=== PATIENT | female | born 1965 | race Two or more races ===

== ENCOUNTER 2018-12-20 13:41 | Emergency (ER) | payer BC, OTHER ==
[~2018-12-20] VITALS: Ht 172.7 cm; Wt 90.4 kg
[~2018-12-20 13:41] MED LIST: NO HOME MEDS; ONDA8TAB9 PO; PHEN-786 PO
[2018-12-20] MEDS ORDERED: iohexol 350MG/ML 100ml bottle IV ONE (14:34)
[2018-12-20 14:39] LABS: BASOPHILS % (AUTO) 0.3 % (0-1); EOSINOPHILS % (AUTO) 0.2 % (0-6); HEMATOCRIT 39.7 % (35.0-45.0); HEMOGLOBIN 13.2 g/dl (12.0-16.0); LYMPHOCYTES # (AUTO) 1.3 X10'3 (1.1-4.8); LYMPHOCYTES % (AUTO) 21.9 % (21-51); MEAN CORPUSCULAR HEMOGLOBIN 30.7 PG (27.0-31.0); MEAN CORPUSCULAR HGB CONC 33.3 g/dL (33.0-36.5); MEAN PLATELET VOLUME 9.8 FL (7.4-10.4); MONOCYTES # (AUTO) 0.6 X10'3 (0-0.9); MONOCYTES % (AUTO) 9.1 % (2-12); NEUTROPHILS # (AUTO) 4.2 X10'3 (1.8-7.7); NEUTROPHILS % (AUTO) 68.5 % (42-75); PLATELET COUNT 239 X10'3 (140-440); RED BLOOD COUNT 4.31 X10'6 (4.20-5.60); RED CELL DISTRIBUTION WIDTH 13.1 % (11.5-14.5); WHITE BLOOD COUNT 6.1 X10'3 (4.5-11.0)
[2018-12-20 14:56] LABS: D-DIMER 0.31 MG/L FEU (0-0.50)
[2018-12-20 15:08] VITALS: BP 130/82
--- NOTE | 2018-12-20 15:32 | NUR ---
CALLED LAB TO HAVE URINE PROCESSED IT WAS SENT DOWN 23 MIN AGO AND STILL NOT PROCESSING.
[2018-12-20] MEDS ORDERED: LORA-269 PO (15:43)
[2018-12-20 15:48] LABS: CLARITY,URINE CLEAR (Clear); COLOR,URINE STRAW (Yellow); GLUCOSE, URINE NEGATIVE (Neg); KETONES,URINE NEGATIVE (Neg); LEUKOCYTE ESTERASE ,URINE NEGATIVE (Neg); NITRITES, URINE NEGATIVE (Neg); OCCULT BLOOD,URINE NEGATIVE (Neg); PH,URINE 5.5 (4.8-8.0); PROTEIN,URINE NEGATIVE (Neg); UROBILINOGEN,URINE 0.2 E.U/dL (0.2-1.0)
[2018-12-20 15:50] LABS: UA COLLECTION TYPE CLN CATCH MIDSTREAM
== END 2018-12-20 16:01 | disposition home or self-care (01) ==
LOC: ER 13:44
DX: F41.0 Panic disorder [episodic paroxysmal anxiety] (principal); R00.2 Palpitations; Z79.899 Other long term (current) drug therapy; Z90.710 Acquired absence of both cervix and uterus
CPT/HCPCS: 36415; 71275; 74174; 81003; 83880; 84484; 85025; 85379; 93005; 99284; Q9967

== ENCOUNTER 2023-07-09 11:12 | Emergency (ER) | payer MEDICAID ==
[~2023-07-09] VITALS: Ht 177.8 cm; Wt 93.8 kg
[~2023-07-09 11:12] MED LIST changes: +LORA-269 PO
[2023-07-09 11:15] VITALS: BP 143/74; PULSE 87; RESP 18; TEMP 97.8; O2SAT 98
[2023-07-09 14:46] LABS: BASOPHILS % (AUTO) 0.5 % (0-1); EOSINOPHILS % (AUTO) 0.2 % (0-6); HEMATOCRIT 41.4 % (35.0-45.0); HEMOGLOBIN 13.9 g/dl (12.0-16.0); LYMPHOCYTES # (AUTO) 1.6 X10'3 (1.1-4.8); LYMPHOCYTES % (AUTO) 26.6 % (21-51); MEAN CORPUSCULAR HEMOGLOBIN 31.3 PG (27.0-31.0); MEAN CORPUSCULAR HGB CONC 33.5 g/dL (33.0-36.5); MEAN CORPUSCULAR VOLUME 93.3 FL (78-98); MEAN PLATELET VOLUME 9.4 FL (7.4-10.4); MONOCYTES # (AUTO) 0.7 X10'3 (0-0.9); MONOCYTES % (AUTO) 11.2 % (2-12); NEUTROPHILS # (AUTO) 3.6 X10'3 (1.8-7.7); NEUTROPHILS % (AUTO) 61.5 % (42-75); PLATELET COUNT 256 X10'3 (140-440); RED BLOOD COUNT 4.43 X10'6 (4.20-5.60); RED CELL DISTRIBUTION WIDTH 13.2 % (11.5-14.5); WHITE BLOOD COUNT 5.9 X10'3 (4.5-11.0)
[2023-07-09] MEDS ORDERED: ibuprofen tablet 400 MG TABLET PO ONE (14:50)
[2023-07-09 14:58] LABS: ALANINE AMINOTRANSFERASE 29 U/L (12-78); ALBUMIN 3.8 G/DL (3.4-5.0); ALKALINE PHOSPHATASE 100 IU/L (46-116); ANION GAP 8 (8-16); ASPARTATE AMINO TRANSFERASE 19 U/L (10-37); BILIRUBIN,TOTAL 0.3 MG/DL (0.1-1.0); BLOOD UREA NITROGEN 10 MG/DL (7-18); BUN/CREATININE RATIO 15.6 (10.0-20.0); CALCIUM 9.2 MG/DL (8.5-10.1); CHLORIDE 104 MMOL/L (99-107); CREATININE 0.64 MG/DL (0.40-0.90); GLUCOSE 97 MG/DL (70-104); POTASSIUM 3.9 MMOL/L (3.5-5.1); SODIUM 140 MMOL/L (135-145); TOTAL CARBON DIOXIDE 28.2 MMOL/L (24-32); TOTAL PROTEIN 7.5 G/DL (6.4-8.2); eCRCL 104 ML/MIN; eGFR > 90 ML/MIN
[2023-07-09] MEDS ORDERED: CefTRIAXone 1000mg IM Kit (w/lidocaine diluent) IM ONE (15:20)
[2023-07-09] MEDS ORDERED: CLIN300C63 PO ×3 (15:34→16:06)
[2023-07-09] MEDS ORDERED: IBUP-1985 PO ×3 (15:34→16:06)
== END 2023-07-09 16:39 | disposition home or self-care (01) ==
LOC: ER 11:13
DX: I80.01 Phlebitis and thrombophlebitis of superficial vessels of right lower extremity (principal); Z87.440 Personal history of urinary (tract) infections; Z87.442 Personal history of urinary calculi; Z90.710 Acquired absence of both cervix and uterus; Z79.2 Long term (current) use of antibiotics; Z79.899 Other long term (current) drug therapy
CPT/HCPCS: 36415; 80053; 85025; 93971; 96372; 99285; J0696

== ENCOUNTER 2023-10-25 21:38 | Emergency (ER) | payer MEDICAID ==
[~2023-10-25] VITALS: Ht 177.8 cm; Wt 93.0 kg
[~2023-10-25 21:38] MED LIST changes: +CLIN300C63 PO; +IBUP-1985 PO
[2023-10-25 21:50] VITALS: BP 154/91; PULSE 74; TEMP 98.8; O2SAT 97
[2023-10-25 22:07] LABS: BILIRUBIN,URINE NEGATIVE (Neg); CLARITY,URINE CLOUDY (Clear); COLOR,URINE STRAW (Yellow); GLUCOSE, URINE NEGATIVE (Neg); KETONES,URINE NEGATIVE (Neg); LEUKOCYTE ESTERASE ,URINE MODERATE (Neg); NITRITES, URINE NEGATIVE (Neg); OCCULT BLOOD,URINE LARGE (Neg); PROTEIN,URINE 100 mg/dl (Neg); UROBILINOGEN,URINE 0.2 E.U/dL (0.2-1.0)
[2023-10-25 22:13] LABS: UA COLLECTION TYPE CLN CATCH MIDSTREAM
[2023-10-25 22:14] LABS: MUCUS STRANDS NONE SEEN /LPF (Neg); SQUAMOUS EPITHELIAL CELL,UR FEW /LPF (FEW); TRANSITIONAL EPI CELLS,URINE FEW /HPF
[2023-10-25 22:15] LABS: BACTERIA,URINE 1+ /HPF (Neg); WBC CLUMPS,URINE FEW /HPF (NEGATIVE); WBC,URINE 50-100 /HPF (0-4)
[2023-10-25] MEDS ORDERED: CefTRIAXone 250MG inj IM ONE (23:20)
[2023-10-25] MEDS ORDERED: NITR100C PO (23:31)
[2023-10-25] MEDS: ketorolac trometh inj. 60 MG/2 ML VIAL IM ONE (23:51)
[2023-10-25] MEDS: CefTRIAXone 1000mg IM Kit (w/lidocaine diluent) IM ONE (23:59)
[2023-10-26 00:02] VITALS: RESP 18
== END 2023-10-26 00:22 | disposition home or self-care (01) ==
LOC: ER 21:39
DX: N39.0 Urinary tract infection, site not specified (principal); Z87.442 Personal history of urinary calculi; Z79.899 Other long term (current) drug therapy
CPT/HCPCS: 81001; 87077; 87088; 87186; 96372; 99284; J0696; J1885

== ENCOUNTER 2025-01-31 10:04 | Outpatient (CLI) | payer MEDICAID ==
[~2025-01-31 10:04] MED LIST changes: +NITR100C PO
--- NOTE | 2025-01-31 11:32 | RADIOLOGY REPORT ---
INDICATION: RIGHT FACIAL NUMBNESS EXAM DATE: 01/31/2025 10:18 AM COMPARISON: None TECHNIQUE: CT of the sinuses without intravenous contrast. RADIATION DOSE: CTDIvol: 54 mGy, DLP: 701 mGy*cm FINDINGS: The frontal sinuses are clear. The ethmoid air cells are clear bilaterally. The right maxillary sin uses are clear . Mucous retention cyst or polyp in the left inferior maxillary sinus measures 1.2 cm. The sphenoid sinuses are clear. The ostiomeatal unit complexes appear patent bilaterally. The cri briform plate and lamina papyracea appear grossly intact. No abnormality of the orbits or globes is identified. The visualized brain is unremarkable. The surrounding soft tissues and osseous structur es are unremarkable. IMPRESSION: Mucous retention cyst or polyp in the left inferior maxillary sinus measures 1.2 cm.
== END 2025-01-31 23:59 | disposition home or self-care (01) ==
LOC: RAD 10:04
PROVIDERS: ATTEND Student in an Organized Health Care Education/Training Program
DX: R20.0 Anesthesia of skin (principal)
CPT/HCPCS: 70486

== ENCOUNTER 2025-02-25 12:41 | Outpatient (CLI) | payer MEDICAID ==
--- NOTE | 2025-02-25 15:38 | RADIOLOGY REPORT ---
EXAM: CT CT HEAD INDICATION: ANESTHESIA OF SKIN TECHNIQUE: CT of the head without intravenous contrast. Radiation Dose Information: CT Dose: CTDI volume is 25 mGy. Dose-length product is 250 mGy*cm The dose indicators for CT are the volume Computed Tomography (CT) Dose Index (CTDIvol) and the Dose Length Product (DLP), and are measured in units of mGy and mGy-cm, respectively. These indicators are not patient dose, but values generated from the CT scanner acquisition factors. The report includes radiation exposure data for exposures received during this examination. COMPARISON: None FINDINGS: There is no evidence of acute intracranial hemorrhage, extra-axial collection, mass effect, midline s hift, herniation or hydrocephalus. The ventricles, sulci and cisterns are age appropriate. The anderson-white differentiation is intact. Patchy periventricular and subcortical white matter hypoattenuation is nonspecific but may be related to small vessel ischemic disease. The visualized paranasal sinuses and mastoid air cells are clear. The surrounding soft tissues and osseous structures are unremarkable. IMPRESSION: No acute intracranial abnormality.
--- NOTE | 2025-02-25 15:41 | VASCULAR REPORT ---
Carotid Duplex Clinical History: Right facial paralysis Comparison: None Technique: Duplex Doppler evaluation of the extracranial carotid and vertebral arteries including color Doppler and spectral/pulsed waveform analysis was performed. Findings: RIGHT SIDE: The peak systolic velocities are 115 cm/s in the CCA, 80 cm/s in the ICA. The ICA/CCA ratio is 0.9. The external carotid artery is patent with peak systolic velocity of 144 cm/s proximally. The subclavian artery is patent with peak systolic velocity of 141 cm/s. There is appropriate antegrade flow in the right vertebral artery. LEFT SIDE: The peak systolic velocities are 113 cm/s in the CCA, 85 cm/s in the ICA. The ICA/CCA ratio is 1.2. The external carotid artery is patent with peak systolic velocity of 100 cm/s proximally. The subclavian artery is patent with peak systolic velocity of 123 cm/s. There is appropriate antegrade flow in the left vertebral artery. IMPRESSION: Less than 50% stenosis of bilateral carotid artery systems. Reference: Radiology 2003; [id number] Normal ICA PSV is <125 cm/sec and no plaque or intimal thickening is visible sonographically addition al criteria include ICA/CCA PSV ratio <2.0 and ICA EDV <40 cm/sec <50% ICA stenosis ICA PSV is <125 cm/sec and plaque or intimal thickening is visible sonographically additional criteria include ICA/CCA PSV ratio <2.0 and ICA EDV <40 cm/sec 50-69% ICA stenosis ICA PSV is 125-230 cm/sec and plaque is visible sonographically additional criter ia include ICA/CCA PSV ratio of 2.0-4.0 and ICA EDV of 40-100 cm/sec 70% ICA stenosis but less than near occlusion ICA PSV is >230 cm/sec and visible plaque and luminal narrowing are seen at anderson-scale and color Doppler ultrasound (the higher the Doppler parameters lie above the threshold of 230 cm/sec, the greater the likelihood of severe disease) additional criteria include ICA/CCA PSV ratio >4 and ICA EDV >100 cm/sec
== END 2025-02-25 23:59 | disposition home or self-care (01) ==
LOC: VAS 12:41
PROVIDERS: ATTEND Student in an Organized Health Care Education/Training Program
DX: R20.0 Anesthesia of skin (principal); R22.42 Localized swelling, mass and lump, left lower limb; H53.9 Unspecified visual disturbance; Q67.0 Congenital facial asymmetry; H92.11 Otorrhea, right ear; E66.9 Obesity, unspecified; Z68.31 Body mass index [BMI] 31.0-31.9, adult; Z71.3 Dietary counseling and surveillance; Z79.899 Other long term (current) drug therapy
CPT/HCPCS: 70450; 93880